=== PATIENT | male | born 1980 | race Caucasian/White ===

== ENCOUNTER 2017-02-21 00:14 | Emergency (ER) | payer OTHER ==
[~2017-02-21] VITALS: Ht 180.3 cm; Wt 54.4 kg
[2017-02-21 00:32] VITALS: BP 139/86
[2017-02-21] MEDS ORDERED: IBUP200C PO (00:36)
[2017-02-21] MEDS ORDERED: ZITHTAB PO (00:53)
[2017-02-21] MEDS ORDERED: CLAR5TAB7 PO (00:53)
[2017-02-21] MEDS ORDERED: AZITHROMYCIN 250 MG TAB PO ONE (01:00)
== END 2017-02-21 01:12 | disposition home or self-care (01) ==
LOC: M ED 01:06
DX: J01.90 Acute sinusitis, unspecified (principal)

== ENCOUNTER 2017-04-02 00:13 | Emergency (ER) | payer OTHER ==
[~2017-04-02] VITALS: Ht 180.3 cm; Wt 64.0 kg
[~2017-04-02 00:13] MED LIST: CLAR5TAB7 PO; IBUP200C PO; ZITHTAB PO
[2017-04-02] MEDS ORDERED: IBUPROFEN 600 MG TAB PO ONE (01:45)
[2017-04-02 01:50] VITALS: BP 141/85
== END 2017-04-02 02:00 | disposition home or self-care (01) ==
LOC: M ED 01:39
DX: J02.9 Acute pharyngitis, unspecified (principal); B34.9 Viral infection, unspecified

== ENCOUNTER → 2020-09-25 | Outpatient (CLI) | payer SELFPAY ==
[~2020-09-25] MED LIST changes: -IBUP200C PO; +IBUP200C25 PO; +KEFL500C17 PO; +MELA3TAB12 PO; +THERTAB52 PO
== END ==
LOC: M LABSMTC 12:03
PROVIDERS: ATTEND Pediatrics
DX: Z20.828 Contact with and (suspected) exposure to other viral communicable diseases (principal)

== ENCOUNTER 2021-03-06 18:34 | Emergency (ER) | payer OTHER ==
[~2021-03-06] VITALS: Ht 180.3 cm; Wt 71.9 kg
[2021-03-06] MEDS ORDERED: IBUP200C89 PO (18:50)
[2021-03-06 21:13] VITALS: BP 138/92
[2021-03-06] MEDS ORDERED: DERMABOND TOPICAL SKIN ADHESIVE TOP ONE (21:55)
[2021-03-06] MEDS ORDERED: BACI500O21 TOP (22:10)
== END 2021-03-06 22:32 | disposition home or self-care (01) ==
LOC: M ED 18:34
DX: Z04.1 Encounter for examination and observation following transport accident (principal); S80.812A Abrasion, left lower leg, initial encounter; T24.002A Burn of unspecified degree of unspecified site of left lower limb, except ankle and foot, initial encounter; V23.0XXA Motorcycle driver injured in collision with car, pick-up truck or van in nontraffic accident, initial encounter; Y92.410 Unspecified street and highway as the place of occurrence of the external cause; Y99.8 Other external cause status

== ENCOUNTER 2021-09-10 00:38 | Emergency (ER) | payer OTHER ==
[~2021-09-10] VITALS: Ht 180.3 cm; Wt 77.4 kg
[~2021-09-10 00:38] MED LIST changes: +BACI500O21 TOP; +IBUP200C89 PO
--- OUTSIDE RECORDS SUMMARY | 2021-09-10 00:45 | CCD ---
Author Author [facility] Organization [facility] Address Unknown Phone Unavailable Care Team Providers Care Bucket Chucker Name Role Phone BRYDEN, A ALETA DO Unavailable Unavailable BRYDEN, A ALETA DO Unavailable Unavailable BRYDEN, A ALETA DO Unavailable Unavailable BRYDEN, A ALETA DO Unavailable Unavailable BRYDEN, A ALETA DO Unavailable Unavailable BRYDEN, A ALETA DO Unavailable Unavailable BRYDEN, A ALETA DO Unavailable Unavailable BRYDEN, A ALETA DO Unavailable Unavailable BRYDEN, A ALETA DO Unavailable Unavailable BRYDEN, A ALETA DO Unavailable Unavailable BRYDEN, A ALETA DO Unavailable Unavailable BRYDEN, A ALETA DO Unavailable Unavailable BRYDEN, A ALETA DO Unavailable Unavailable BRYDEN, A ALETA DO Unavailable Unavailable BRYDEN, A ALETA DO Unavailable Unavailable BRYDEN, A ALETA DO Unavailable Unavailable BRYDEN, A ALETA DO Unavailable Unavailable BRYDEN, A ALETA DO Unavailable Unavailable BRYDEN, A ALETA DO Unavailable Unavailable BRYDEN, A ALETA DO Unavailable Unavailable BRYDEN, A ALETA DO Unavailable Unavailable BRYDEN, A ALETA DO Unavailable Unavailable BRYDEN, A ALETA DO Unavailable Unavailable BRYDEN, A ALETA DO Unavailable Unavailable BRYDEN, A ALETA DO Unavailable Unavailable BRYDEN, A ALETA DO Unavailable Unavailable BRYDEN, A ALETA DO Unavailable Unavailable BRYDEN, A ALETA DO Unavailable Unavailable BRYDEN, A ALETA DO Unavailable Unavailable NC, [email or web address] Unavailable Unavailable Re-disclosure Warning The records that you are about to access may contain information from federally-assisted alcohol or drug abuse programs. If such information is present, then the following federally mandated warning applies: This information has been disclosed to you from records protected by federal confidentiality rules (42 CFR part 2). The federal rules prohibit you from making any further disclosure of this information unless further disclosure is expressly permitted by the written consent of the person to whom it pertains or as otherwise permitted by 42 CFR part 2. A general authorization for the release of medical or other information is NOT sufficient for this purpose. The Federal rules restrict any use of the information to criminally investigate or prosecute any alcohol or drug abuse patient.The records that you are about to access may contain highly sensitive health information, the redisclosure of which is protected by Article 27-F of the [facility] Public Health law. If you continue you may have access to information: Regarding HIV / AIDS; Provided by facilities licensed or operated by the [facility] Office of Mental Health; or Provided by the [facility] Office for People With Developmental Disabilities. If such information is present, then the following [facility] mandated warning applies: This information has been disclosed to you from confidential records which are protected by state law. State law prohibits you from making any further disclosure of this information without the specific written consent of the person to whom it pertains, or as otherwise permitted by law. Any unauthorized further disclosure in violation of state law may result in a fine or senior living sentence or both. A general authorization for the release of medical or other information is NOT sufficient authorization for further disc losure. Family History Family Member Name Family Member Gender Family Member Status Date o f Status Description Data Source(s) Unknown Female Problem MEDENT ([facility]) Encounters Encounter Providers Location Date Indications Data Source(s ) Outpatient Attender: [id number] [facility] 08/28/2020 03:49:59 PM [facility] Outpatient Attender: [id number] [facility] 08/28/2020 03:00:00 PM EST [facility] Outpatient Attender: [id number] [facility] 08/28/2020 02:44:00 PM EST [facility] Outpatient Attender: ALETA James/Inés/Alexander/Yohannes ndl 08/17/2020 09:20:00 AM EDT MEDENT ([facility]) Outpatient Attender: [id number] [facility] 08/15/2020 09:29:00 AM EDT [facility] Outpatient Attender: [id number] [facility] 08/15/2020 08:55:01 AM EDT [facility] Outpatient Attender: [id number] [facility] 08/15/2020 08:23:00 AM EDT [facility] Outpatient Attender: [id number] [facility] 08/14/2020 12:57:59 PM EDT [facility] Immunizations Vaccine Date Status Description Data Source(s) COVID-19 VACCINE GreenSand 02/24/2021 12:00:00 AM EDT completed [facility] Vaccine Series Complete: YESThis Data wa s Submitted to [facility]. COVID-19 VACCINE Pfizer 02/03/2021 12:00:00 AM EDT completed [facility] Vaccine Series Complete: NOThis Data was Submitted to [facility]. Medications No Information Insurance Providers Payer name Policy type / Coverage type Policy ID Covered green party ID Covered green party's relationship to jo Policy Jo Plan Information Medicaid S [id number] S [id number] [facility] P [id number] S [id number] Managed Care - [facility] P [id number] S [id number] [facility] [id number] SP [id number] [facility] [id number] SP [id number] Medicaid S [id number] S [id number] Aetna P UNAVAILABLE S UNAVAILA BLE ANSI-Not a Secondary Insurance [id number] [facility] HEALTH CARE [id number] SP [id number] [facility] Health Maintenance Organization (HMO) [id number] Se lf MEDICAID [id number] SP [id number] Medicaid Dental P [id number] S [id number] SELF PAY UNAVAILABLE SP UNAVAILA BLE AETNA [facility] TX [id number] SP [id number] [employer] [id number] SP [id number] AETNA [facility] [place] [id number] SP [id number] SELF PAY ONLY [id number] MVP [facility] [id number] SP [id number] [facility] [id number] SP [id number] Aet[employer] P [id number] S [id number] Problems, Conditions, and Diagnoses No Information Surgeries/Procedures Procedure Description Date Indications Data Source(s) Hemorrhoidectomy, By Simple Ligature 09/21/2020 12:00: 00 AM EST MEDENT ([facility] [place], ) Hemorrhoidectomy, By Simple Ligature 07/13/2020 12:00: 00 AM EDT MEDENT ([facility] [place] ) Results ID Date Data Source [id number] 09/25/2020 12:00:00 AM EST [facility] Name Value Range Interpretation Code Description Data Yun rce(s) Supporting Document(s) 2019-nCoV RNA XXX BRIDGETT+probe-Imp [facility] This lab was ordered by [facility] and reported by [facility]. ID Date Data Source [id number] 08/28/2020 02:44:45 PM [facility] Vital SignsBlood Pressure: 135/85 Patient History Family History:Social/Personal History: Smoking Status: never smokerCurrent Problems: Other and unspecified diseases of the oral soft tissues (ICD-528.9) (ICD10- M79.89)Dental caries (ICD-521.00) (YWI55-L52.9)Vitamin D deficiency (ICD-268.9) (KCK81-V69.9)Hyperlipidemia (ICD-272.4) (JDK32-C16.5)Abdominal pain (ICD-789.00) (AAD66-I02.9) Dental Chart: Procedures:Type - CDT Code - Description B - (D0150) Comprehensive oral evaluation - new or established patient (Performed by Priscilla Chavez DDS) B - (D0274) Bitewings, 4 ra diographic images (Performed by Bekah Breaux) B - (D1110) Prophylaxis, adult (Performed by Bekah Breaux) B - (D0230) Intraoral, periapical, each additional radiographic image on Tooth # 11 (Performed by Bekah Breaux) B - (D0220) Intraoral, periapical, first radiographic image on Tooth # 5 (Performed by Bekah Breaux) B - (D0230) Intraoral, periapical, each additional radiographic image on Tooth # 8 (Performed by Bekah Breaux) Existing:Type - CDT Code - Description[E] [employer] On #15 Surface , #19 Surface , #2 Surface DO, #20 Surface O, #3 Surface OMBL[E] Resin-Based Composite - Direct On #13 Surface DO, #5 Surface [E] Missing - Mccoy and Root On #1 Surface O Region XR, #14 Surface O Region XR, #16 Surface O Region XR, #17 Surface O Region XR, #18 Surface O Region XR, #30 Surface O Region XR, #31 Surface O Region XR, #32 Surface O Region XR, #4 Surface O Region XR Chart Alert:[facility]/ [facility] managed care no historyProphy every 6monthsExam every 6 monthsBitewings every 6 monthsPanorex every 3 years Chart Notes:sarwat (Aug 28 2020 3:48PM): Mauro(-). CC: none. Reviewed Xrays. Exam: no caries detected. OCS: WNL, IO/ EO completed, No significant hard findings upon clinical exam.Additional PPE requirements due to COVID-19 in the dental setting, N95, surgical mask, hair covering, gown and shieldPt was cooperative. OHI given Referral: N/A NV:Bekah Stewart by sarwat (08/28/2020 3:48 PM): ; sienna (Aug 28 2020 3:36PM): [facility]- no changescc-NoneAdditional PPE requirements due to COVID-19 in the dental setting, N95, surgical mask, hair covering, gown. Comp exam, 4BWX, PA#5, 8, 11 , Adult prophy -handscaled, polished with rotary cup, flossedOH-goodPatient reported brushing twice/day, flossing regularly. Patient uses Listerine zero total careTrace marginal biofilm with trace marginal and interproximal calculus in sextant 5Used hand instrumentsTissues- mild bleeding on flossingOHI-brushing am pm, flossing and then using Listerine zero total carePatient was cooperativeNV-6 months recallBekah Breaux by sienna (08/28/2020 3:36 PM): Tooth Notes and Watches: Name Value Range Interpretation Code Description Data Yun rce(s) Supporting Document(s) ID Date Data Source [id number] 08/15/2020 08:22:41 AM EDT [facility] Current Problems: Other and unspecified diseases of the oral soft tissues (ICD- 528.9) (NGZ68-Z75.89)Dental caries (ICD-521.00) (FFS18-I74.9)Vitamin D deficiency (ICD-268.9) (YXZ67-R92.9)Hyperlipidemia (ICD-272.4) (ICD10- E78.5)Abdominal pain (ICD-789.00) (HQJ88-R15.9)Problem list reviewed during this update.Medication list reviewed during this update.No known medications.Allergy list reviewed during this update.No known allergies. Dental Chart: Procedures:Type - CDT Code - Description B - (D2335) Resin, 4 or more surfaces or involving incisal angle (anterior) on Tooth # 9 on Tooth Surface MFLI (Performed by Scott ACEVEDO, Priscilla) Chart Alert:[facility] no historyProphy every 6monthsExam every 6 monthsBitewings every 6 monthsPanorex every 3 years Chart Notes:sarwat (Aug 15 2020 9:28AM): [facility] (-) per pt Took temp@ F. Additional PPE requirements due to COVID-19 in the dental setting, N95, surgical mask, hair covering, gown CC: none. No anesthesia need ed, pt tolerated well. Operative: #9-FMIL etched and rinsed, futurabond placed and light cured. Voco GrandiOso Composite B3, Clearfil Flow. Excavated with High Speed. Occlusion checked and polished. No complications. POI. Given. Assisted by AG . Pt was cooperative. NV:RecallDiPriscilla dewitt DDS by sarwat (08/15/2020 9:27 AM): Tooth Notes and Watches: Assessment & Plan Allergies:No Known Allergies (updated 08/15/2020) Name Value Range Interpretation Code Description Data Yun rce(s) Supporting Document(s) ID Date Data Source [id number] 08/14/2020 12:32:49 PM EDT [facility] Current Problems: Other and unspecified diseases of the oral soft tissues (ICD- 528.9) (NFY94-V32.89)Dental caries (ICD-521.00) (KQX59-Q81.9)Vitamin D deficiency (ICD-268.9) (FBT94-Z78.9)Hyperlipidemia (ICD-272.4) (ICD10- E78.5)Abdominal pain (ICD-789.00) (IYZ56-Y91.9)Problem list reviewed during this update.Medication list reviewed during this update.No known medications.Allergy list reviewed during this update.No known allergies. Dental Chart: Procedures:Type - CDT Code - Description B - (D0140) Limited oral evaluation - problem focused on Tooth # 9 (Performed by Priscilla Chavez DDS) B - (D0220) Intraoral, periapical, first radiographic image on Tooth # 9 (Performed by Priscilla Chavez DDS) Treatments:Type - CDT Code - Description T - (D2335) Resin, 4 or more surfaces or involving incisal angle (anterior) on Tooth # 9 on Tooth Surface MFLI (Performed by Priscilla Chavez DDS) Chart Alert:[facility]/ [facility] managed care no historyProphy every 6monthsExam every 6 monthsBitewings every 6 monthsPanorex every 3 years Chart Notes:sarwat (Aug 14 2020 12:56PM): Additional PPE requirements due to COVID-19 in the dental setting, N95, surgical mask, hair covering, gown and shield.S: CC:I had a tooth that was filled and capped and it fell out."O: RMHx (-)Per Pt. HPI: [address]: 0 BP: 139/87 P: 69, PA #9, Lost his filling biting on breadA: KRISTINA recommends redo filling , DX:fractured restorative materialP:Fill 9-MFLIInformed Pt about new pain management policy of the clinic regarding about narcotic,told pt to alternate Ibuprophen 600- 800mg and tylenol 500mg every 4 to 6 hrs for pain when needed. Assisted By: PD NV: Priscilla Cheek DDS by sarwat (08/14/2020 12:56 PM): Tooth Notes and Watches: Assessment & Plan Allergies:No Known Allergies (updated 08/14/2020) Name Value Range Interpretation Code Description Data Yun rce(s) Supporting Document(s) Procedure Social History No Information Vital Signs ID Date Data Source UNK Name Value Range Interpretation Code Description Data Source(s) Systolic blood pressure 146 mm[Hg] 146 mm[Hg] M EDENT ([facility] [place], ) Body weight 148.38 [lb_av] 148.38 [lb_av] MEDEN T ([facility] [place], ) Diastolic blood pressure 74 mm[Hg] 74 mm[Hg] MEDENT ([facility] [place], ) [place] body weight 154 [lb_av] 154 [lb_av] MEDEN T ([facility] [place], ) Body mass index (BMI) [Ratio] 22.6 kg/m2 22.6 k g[facility] Body height 68 [in_i] 68 [in_i] MEDENT ([facility]) 5'8" Body surface area Derived from formula 1.80 m2 1.80 m2 [facility] ([facility]) Body weight 67.303 kg 67.303 kg [facility] ([facility]) [place] body weight 154 [lb_av] 154 [lb_av] MEDEN T ([facility]) Body surface area Derived from formula 1.82 m2 1.82 m2 [facility] ([facility]) Systolic blood pressure 151 mm[Hg] 151 mm[Hg] M EDENT ([facility]) Diastolic blood pressure 90 mm[Hg] 90 mm[Hg] [facility] ([facility]) Heart rate 73 /min 73 /min [facility] ([facility]) Body height 68 [in_i] 68 [in_i] MEDENT ([facility]) 5'8" Body weight 152.25 [lb_av] 152.25 [lb_av] MEDEN T ([facility]) Body mass index (BMI) [Ratio] 23.1 kg/m2 23.1 k g/m2 [facility] ([facility]) Body weight 69.061 kg 69.061 kg [facility] ([facility]) Systolic blood pressure 128 mm[Hg] 128 mm[Hg] M EDENT ([facility]) Diastolic blood pressure 72 mm[Hg] 72 mm[Hg] MEDENT ([facility]) Body height 68 [in_i] 68 [in_i] MEDENT ([facility]) 5'8" Body weight 152.25 [lb_av] 152.25 [lb_av] MEDEN T ([facility]) Body mass index (BMI) [Ratio] 23.1 kg/m2 23.1 k g/m2 [facility] ([facility]) [place] body weight 154 [lb_av] 154 [lb_av] MEDEN T ([facility]) Body weight 69.061 kg 69.061 kg [facility] ([facility]) Body surface area Derived from formula 1.82 m2 1.82 m2 [facility] ([facility]) Diastolic blood pressure 80 mm[Hg] 80 mm[Hg] [facility] ([facility]) Heart rate 71 /min 71 /min [facility] ([facility]) Body height 68 [in_i] 68 [in_i] [facility] ([facility]) 5'8" Body weight 151.25 [lb_av] 151.25 [lb_av] [facility] Body mass index (BMI) [Ratio] 23.0 kg/m2 23.0 k g/m2 [facility] ([facility]) [place] body weight 154 [lb_av] 154 [lb_av] [facility] Body weight 68.607 kg 68.607 kg [facility] ([facility]) Systolic blood pressure 146 mm[Hg] 146 mm[Hg] [facility]
--- OUTSIDE RECORDS SUMMARY | 2021-09-10 07:31 | CCD ---
Author Author [facility] Address Unknown Phone Unavailable Care Team Providers Care Coiler Name Role Phone BRYDEN, A ALETA DO [...] is protected by Article 27-F of the [facility] Public Health law. If you continue you may have access to information: Regarding HIV / AIDS; Provided by facilities licensed or operated by the [facility] Office of Mental Health; or Provided by the [facility] Office for People With Developmental Disabilities. If such information is present, then the following [facility] mandated warning applies: This information has been [...] may result in a fine or senior care sentence or both. A general authorization for the release of medical or other information is NOT sufficient authorization for further disc losure. Family History Family Member Name Family Member Gender Family Member Status Date o f Status Description Data Source(s) Unknown Female Problem [facility] ([facility]) Encounters Encounter Providers Location Date Indications Data Source(s ) Outpatient Attender: [id number] [facility] 08/28/2020 03:49:59 PM [facility] Outpatient Attender: [email or web address] [facility] 08/28/2020 03:00:00 PM EST [facility] Outpatient Attender: [email or web address] [facility] 08/28/2020 02:44:00 PM EST [facility] Outpatient Attender: ALETA James/Inés/Alexander/Yohannes ndl 08/17/2020 09:20:00 AM EDT [facility] ([facility] Outpatient Attender: [email or web address] [facility] 08/15/2020 09:29:00 AM EDT [facility] Outpatient Attender: [id number] [facility] 08/15/2020 08:55:01 AM EDT [facility] Outpatient Attender: [id number] [facility] 08/15/2020 08:23:00 AM EDT [facility] Outpatient Attender: [id number] [facility] 08/14/2020 12:57:59 PM EDT [facility] Immunizations Vaccine Date Status Description Data Source(s) COVID-19 VACCINE [place] 02/24/2021 12:00:00 AM EDT completed [facility] Vaccine Series Complete: YESThis Data wa s Submitted to [facility] Via [employer]. COVID-19 VACCINE Pfizer 02/03/2021 12:00:00 AM EDT completed [facility] Vaccine Series Complete: NOThis Data was Submitted to [facility] Via [employer]. Medications No Information Insurance Providers Payer name Policy type / Coverage type Policy ID Covered republican ID Covered republican's relationship to jo Policy Jo Plan Information Medicaid S [id number] S [id number] [facility] P [id number] S [id number] Managed Care - [facility] P [id number] S [id number] [facility] [id number] SP [id number] [facility] [id number] SP [id number] Medicaid S [id number] S [id number] Aetna P UNAVAILABLE S UNAVAILA BLE ANSI-Not a Secondary Insurance [id number] [facility] [id number] SP [id number] [facility] Health Maintenance Organization (HMO) [id number] Se lf MEDICAID [id number] SP [id number] Medicaid Dental P [id number] S [id number] SELF PAY UNAVAILABLE SP UNAVAILA BLE AETNA [facility] [place] [id number] SP [id number] [employer] [id number] SP [id number] AETNA [facility] [place] [id number] SP [id number] SELF PAY ONLY [id number] [facility] [id number] SP [id number] 3000 [facility] [id number] SP [id number] A[employer] P [id number] S [id number] Problems, Conditions, and Diagnoses No Information Surgeries/Procedures Procedure Description Date Indications Data Source(s) Hemorrhoidectomy, By Simple Ligature 09/21/2020 12:00: 00 AM EST [facility] ([facility], ) Hemorrhoidectomy, By Simple Ligature 07/13/2020 12:00: 00 AM EDT [facility] ([facility], ) Results ID Date Data Source [id number] 09/25/2020 12:00:00 AM EST [facility] Name Value Range Interpretation Code Description Data Yun rce(s) Supporting Document(s) 2019-nCoV RNA XXX BRIDGETT+probe-Imp [facility] This lab was ordered by [facility] and reported by [employer] ID Date Data Source [id number] 08/28/2020 02:44:45 PM [facility] Vital SignsBlood Pressure: 135/85 Patient History Family History:Social/Personal History: Smoking Status: never smokerCurrent Problems: Other and unspecified diseases of the oral soft tissues (ICD-528.9) (ICD10- M79.89)Dental caries (ICD-521.00) (BYX41-N71.9)Vitamin D deficiency (ICD-268.9) (WJY49-E39.9)Hyperlipidemia (ICD-272.4) (OCU24-Z79.5)Abdominal pain (ICD-789.00) (TXY96-P56.9) Dental Chart: Procedures:Type - CDT Code - [...] Existing:Type - CDT Code - Description[E] [employer] On #15 Surface , #19 Surface , #2 Surface DO, #20 Surface O, #3 Surface OMBL[E] Resin-Based Composite - Direct On #13 Surface DO, #5 Surface [E] Missing - [place] and Root On #1 Surface O Region XR, #14 Surface O Region XR, #16 Surface O Region XR, #17 Surface O Region XR, #18 Surface O Region XR, #30 Surface O Region XR, #31 Surface O Region XR, #32 Surface O Region XR, #4 Surface O Region XR Chart Alert:[facility]/ [facility] managed care no historyProphy every 6monthsExam every [...] PM): ; sienna (Aug 28 2020 3:36PM): [facility]- no changescc-NoneAdditional PPE requirements due to COVID-19 [...] rce(s) Supporting Document(s) ID Date Data Source [id number] 08/15/2020 08:22:41 AM EDT [facility] Current Problems: Other and unspecified diseases of the oral soft tissues (ICD- 528.9) (CAZ06-Z70.89)Dental caries (ICD-521.00) (GUN29-G51.9)Vitamin D deficiency (ICD-268.9) (CKW24-S11.9)Hyperlipidemia (ICD-272.4) (ICD10- E78.5)Abdominal pain (ICD-789.00) (CXC36-S92.9)Problem list reviewed during this update.Medication list reviewed during this update.No known medications.Allergy list reviewed during this update.No known allergies. Dental Chart: Procedures:Type - CDT Code - Description B - (D2335) Resin, 4 or more surfaces or involving incisal angle (anterior) on Tooth # 9 on Tooth Surface MFLI (Performed by Scott ACEVEDO, Priscilla) Chart Alert:[facility]/ [facility] no historyProphy every 6monthsExam every [...] rce(s) Supporting Document(s) ID Date Data Source [id number] 08/14/2020 12:32:49 PM EDT [facility] Current Problems: Other and unspecified diseases of the oral soft tissues (ICD- 528.9) (XJZ12-L65.89)Dental caries (ICD-521.00) (WRU08-V65.9)Vitamin D deficiency (ICD-268.9) (DMJ76-E25.9)Hyperlipidemia (ICD-272.4) (ICD10- E78.5)Abdominal pain (ICD-789.00) (EVD25-U56.9)Problem list reviewed during this update.Medication list reviewed [...] #9, Lost his filling biting on breadA: [facility] recommends redo filling , DX:fractured restorative materialP:Fill [...] Value Range Interpretation Code Description Data Source(s) Body height 68 [in_i] 68 [in_i] [facility] ([facility], ) 5'8" Diastolic blood pressure 74 mm[Hg] 74 mm[Hg] [facility] ([facility], ) Systolic blood pressure 146 mm[Hg] 146 mm[Hg] M EDENT ([facility], ) Body weight 148.38 [lb_av] 148.38 [lb_av] EDILBERTO Krueger ([facility], ) Body weight 67.303 kg 67.303 kg [facility] ([facility]) [place] body weight 154 [lb_av] 154 [lb_av] MEDEN T ([facility]) Body mass index (BMI) [Ratio] 22.6 kg/m2 22.6 k g/m2 [facility] ([facility]) Body surface area Derived from formula 1.80 m2 1.80 m2 [facility] ([facility]) [place] body weight 154 [lb_av] 154 [lb_av] [facility] T ([facility]) Systolic blood pressure 151 mm[Hg] 151 mm[Hg] M [facility] ([facility]) Diastolic blood pressure 90 mm[Hg] 90 mm[Hg] [facility] ([facility]) Heart rate 73 /min 73 /min [facility] ([facility]) Body height 68 [in_i] 68 [in_i] [facility] ([facility]) 5'8" Body surface area Derived from formula 1.82 m2 1.82 m2 [facility] ([facility]) Body weight 152.25 [lb_av] 152.25 [lb_av] [facility] T ([facility]) Body mass index (BMI) [Ratio] 23.1 kg/m2 23.1 k g/m2 [facility] ([facility]) Body weight 69.061 kg 69.061 kg [facility] ([facility]) Systolic blood pressure 128 mm[Hg] 128 mm[Hg] M EDENT ([facility]) Diastolic blood pressure 72 mm[Hg] 72 mm[Hg] [facility] ([facility]) Body height 68 [in_i] 68 [in_i] [facility] ([facility]) 5'8" Body weight 152.25 [lb_av] 152.25 [lb_av] [facility] ([facility]) Body mass index (BMI) [Ratio] 23.1 kg/m2 23.1 k g/m2 [facility] ([facility]) [place] body weight 154 [lb_av] 154 [lb_av] [facility] T ([facility]) Body weight 69.061 kg 69.061 kg [facility] ([facility]) Body surface area Derived from formula 1.82 m2 1.82 m2 [facility] ([facility]) Diastolic blood pressure 80 mm[Hg] 80 mm[Hg] [facility] ([facility]) Heart rate 71 /min 71 /min [facility] ([facility]) Body height 68 [in_i] 68 [in_i] [facility] ([facility]) 5'8" Body weight 151.25 [lb_av] 151.25 [lb_av] [facility] ([facility]) Body mass index (BMI) [Ratio] 23.0 kg/m2 23.0 k g/m2 [facility] ([facility]) [place] body weight 154 [lb_av] 154 [facility]_av[facility] Systolic blood pressure 146 mm[Hg] 146 mm[Hg] M EDENT ([facility]) Body weight 68.607 kg 68.607 kg [facility] ([facility])
[2021-09-10 09:44] LABS: MONO REFLEX EBV COMP NEGATIVE (NEGATIVE)
[2021-09-10] MEDS ORDERED: LIDO2SOL17 PO (10:07)
[2021-09-10 10:12] VITALS: BP 143/87
[2021-09-11 16:11] LABS: EBV AB TO NUCLEAR ANTIGEN >600.0 U/mL (0.0-17.9); EBV VIRAL CAPSID AG IgG <18.0 U/mL (0.0-17.9); EBV VIRAL CAPSID AG IgM <36.0 U/mL (0.0-35.9)
== END 2021-09-10 10:17 | disposition home or self-care (01) ==
LOC: M ED 00:38
DX: J02.9 Acute pharyngitis, unspecified (principal); Z88.8 Allergy status to other drugs, medicaments and biological substances

== ENCOUNTER 2022-04-12 18:36 | Emergency (ER) | payer OTHER ==
[~2022-04-12] VITALS: Ht 180.3 cm; Wt 77.3 kg
[2022-04-12 18:36] VITALS: BP 164/101
[~2022-04-12 18:36] MED LIST changes: +LIDO2SOL17 PO
[2022-04-12] MEDS ORDERED: LIDOCAINE 1% MDV 20ML VIAL SC ONE (21:10)
[2022-04-12] MEDS ORDERED: NEOSPORIN OINT 0.9 GM PKT TOP ONE (21:10)
[2022-04-12] MEDS ORDERED: IBUPROFEN 600MG TAB PO ONE (21:30)
== END 2022-04-12 22:37 | disposition home or self-care (01) ==
LOC: M ED 18:36
DX: S61.512A Laceration without foreign body of left wrist, initial encounter (principal); W29.3XXA Contact with powered garden and outdoor hand tools and machinery, initial encounter; Y92.018 Other place in single-family (private) house as the place of occurrence of the external cause; Z88.8 Allergy status to other drugs, medicaments and biological substances

== ENCOUNTER 2022-04-20 08:53 | Emergency (ER) | payer OTHER ==
[~2022-04-20] VITALS: Ht 180.3 cm; Wt 74.1 kg
[2022-04-20 08:54] VITALS: BP 136/76
== END 2022-04-20 09:24 | disposition home or self-care (01) ==
LOC: M ED 08:53
DX: Z48.02 Encounter for removal of sutures (principal); Z88.8 Allergy status to other drugs, medicaments and biological substances

== ENCOUNTER 2022-06-03 11:31 | Emergency (ER) | payer OTHER ==
[~2022-06-03] VITALS: Ht 180.3 cm; Wt 74.4 kg
[2022-06-03] MEDS ORDERED: IBUP200T46 PO (11:52)
[2022-06-03] MEDS ORDERED: KETOROLAC 60MG 2ML VIAL IM ONE (13:40)
[2022-06-03] MEDS ORDERED: MELO7.5T35 PO (13:55)
[2022-06-03 14:10] VITALS: BP 163/94
== END 2022-06-03 14:12 | disposition home or self-care (01) ==
LOC: M ED 11:31
DX: M76.892 Other specified enthesopathies of left lower limb, excluding foot (principal); Z88.8 Allergy status to other drugs, medicaments and biological substances
CPT/HCPCS: 73502; 96372; 99283; J1885

== ENCOUNTER → 2022-08-16 | Outpatient (CLI) | payer OTHER ==
[~2022-08-16] MED LIST changes: +IBUP200T46 PO; +ISOVUE-300 61% 50ML VIAL As Ordered ONE; +LIDOCAINE 1% MDV 20ML VIAL As Ordered ONE; +MELO7.5T35 PO; +PROHANCE 279.3MG/ML 5ML VIAL As Ordered ONE
== END ==
LOC: M RADPRO 07:00
PROVIDERS: ATTEND Orthopaedic Surgery Adult Reconstructive Orthopaedic Surgery
DX: M24.852 Other specific joint derangements of left hip, not elsewhere classified (principal)
CPT/HCPCS: 27093; 73723; 77002; A9576; Q9967

== ENCOUNTER → 2022-09-16 | Outpatient (CLI) | payer OTHER ==
[~2022-09-16] MED LIST changes: -ISOVUE-300 61% 50ML VIAL As Ordered ONE; -LIDOCAINE 1% MDV 20ML VIAL As Ordered ONE; -PROHANCE 279.3MG/ML 5ML VIAL As Ordered ONE
== END ==
LOC: M RAD 07:15
PROVIDERS: ATTEND Nurse Practitioner Women's Health
DX: N50.819 Testicular pain, unspecified (principal)

== ENCOUNTER → 2022-10-07 | Outpatient (CLI) | payer OTHER | LOC: M SOG 07:53 | PROVIDERS: ATTEND Orthopaedic Surgery | DX: M54.50 Low back pain, unspecified (principal); M54.6 Pain in thoracic spine ==

== ENCOUNTER → 2023-01-27 | Outpatient (CLI) | payer OTHER ==
[~2023-01-27] MED LIST changes: +LIDO15SO PO; -LIDO2SOL17 PO
== END ==
LOC: M SOG 08:47
PROVIDERS: ATTEND Orthopaedic Surgery
DX: M25.552 Pain in left hip (principal); Z53.8 Procedure and treatment not carried out for other reasons

== ENCOUNTER → 2023-03-20 | Outpatient (CLI) | payer OTHER | LOC: M SOG 09:41 | PROVIDERS: ATTEND Orthopaedic Surgery | DX: M25.552 Pain in left hip (principal) ==

== ENCOUNTER → 2023-04-10 | Outpatient (CLI) | payer OTHER ==
[2023-04-10 10:10] LABS: HEMATOCRIT 52.6 % (42.0-52.0); HEMOGLOBIN 17.7 g/dl (13.5-17.5); MEAN CORPUSCULAR HEMOGLOBIN 29.6 pg (27.0-33.0); MEAN CORPUSCULAR HGB CONC 33.7 g/dl (32.0-36.5); PLATELET COUNT, AUTOMATED 269 10^3/uL (150-450); RED BLOOD COUNT 5.98 10^6/uL (4.30-6.10); WHITE BLOOD COUNT 6.4 10^3/uL (4.0-10.0)
[2023-04-10 10:41] LABS: C REACTIVE PROTEIN QUANTITATIV < 0.40 MG/DL (<1.0)
[2023-04-10 10:43] LABS: ALBUMIN 4.1 G/DL (3.2-5.2); ALKALINE PHOSPHATASE 80 U/L (46-116); ALT/SGPT 33 U/L (7.0-40); AST/SGOT 13 U/L (<34); BILIRUBIN,TOTAL 1.9 MG/DL (0.3-1.2); BLOOD UREA NITROGEN 9 MG/DL (9-23); CARBON DIOXIDE LEVEL 26 MMOL/L (20-31); CHLORIDE LEVEL 109 MMOL/L (98-107); CHOLESTEROL LEVEL 141 MG/DL (<200); CHOLESTEROL RISK RATIO 4.09 (<5); GLOMERULAR FILTRATION RATE > 60.0 (>60); GLUCOSE, FASTING 96 MG/DL (60-100); HDL CHOLESTEROL 34.4 MG/DL (>40); LDL CHOLESTEROL 68.2 MG/DL (<100); NON-HDL-C 106.6 MG/DL; POTASSIUM SERUM 4.3 MMOL/L (3.5-5.1); SODIUM LEVEL 141 MMOL/L (136-145); THYROID STIMULATING HORMONE 0.895 uIU/ML (0.55-4.78); TOTAL 25(OH) VITAMIN D 38.9 NG/ML (20.0-100.0); TOTAL PROTEIN 7.1 G/DL (5.7-8.2); TRIGLYCERIDES LEVEL 192 MG/DL (<150); VITAMIN B12 LEVEL 255 PG/ML (211-911)
[2023-04-10 10:44] LABS: FREE T4 0.91 NG/DL (0.89-1.76)
[2023-04-10 11:42] LABS: HEMOGLOBIN A1c 5.5 % (4.0-6.0)
== END ==
LOC: M LAB 09:20
PROVIDERS: ATTEND Internal Medicine Hematology
DX: Z13.1 Encounter for screening for diabetes mellitus (principal)

== ENCOUNTER → 2025-09-11 | Outpatient (REF) | payer OTHER ==
[~2025-09-11] MED LIST changes: -LIDO15SO PO; +LIDO15SO8 PO
== END ==
LOC: M LAB REF 18:05
DX: J02.9 Acute pharyngitis, unspecified (principal)